=== PATIENT | male | born 1990 | race Caucasian/White ===

== ENCOUNTER 2017-12-14 15:29 | Inpatient (IN) | payer BC ==
[~2017-12-14] VITALS: Ht 170.2 cm; Wt 63.6 kg
[2017-12-14] MEDS ORDERED: SODIUM CHLORIDE 0.9% 1000ML 1,000 ML IV ONE ×2 (15:57→20:53)
[2017-12-14] MEDS ORDERED: MORPHINE SULFATE 2 MG/ML 1ML SYG ONE ×4 (15:57→18:54)
[2017-12-14 16:01] LABS: APPEARANCE,URINE Clear (CLEAR); BASOPHILS % (AUTO) 0.6 % (0.0-5.0); BILIRUBIN,URINE Negative (NEGATIVE); COLOR,URINE Yellow (YELLOW); EOSINOPHILS % (AUTO) 1.2 % (0.0-8.0); GLUCOSE, URINE (UA) Negative (NEGATIVE); HEMATOCRIT 41.9 % (42-54); KETONES,URINE Trace mg/dL (NEGATIVE); LEUKOCYTE ESTERASE ,URINE Negative (NEGATIVE); LYMPHOCYTES % (AUTO) 25.1 % (21.0-51.0); MEAN CORPUSCULAR HEMOGLOBIN 31.6 pg (27.0-33.0); MEAN CORPUSCULAR HGB CONC 34.7 g/dL (32.0-36.0); MEAN CORPUSCULAR VOLUME 90.9 fL (79-99); MONOCYTES % (AUTO) 5.5 % (3.0-13.0); NEUTROPHILS % (AUTO) 67.6 % (40.0-77.0); NITRATE,URINE Negative (NEGATIVE); NUCLEATED RED BLOOD CELLS 0.1 % (0.0-0.19); OCCULT BLOOD,URINE Negative (NEGATIVE); PLATELET COUNT (AUTO) 345 K/uL (130-400); PROTEIN,URINE Negative (NEGATIVE); RED BLOOD CELL COUNT(AUTO) 4.61 MIL/uL (4.50-6.20); RED CELL DISTRIBUTION WIDTH 14.1 % (11.0-15.5); UROBILINOGEN,URINE 0.2 mg/dL (0.2-1.0); WHITE BLOOD COUNT (AUTO) 11.1 K/uL (4.8-10.8)
[2017-12-14 16:12] LABS: CREATININE 0.9 mg/dL (0.5-1.5); POTASSIUM 3.8 mmol/L (3.5-5.1)
[2017-12-14 16:16] LABS: ALBUMIN 4.4 g/dL (3.5-5.0); BILIRUBIN,TOTAL 0.6 mg/dL (0.2-1.0); TOTAL PROTEIN, SERUM 8.3 g/dL (6.0-8.3)
[2017-12-14] MEDS ORDERED: IOHEXOL-350 75 ML VIAL IV ONE (16:31)
[2017-12-14 20:13] VITALS: BP 131/96
[2017-12-14] MEDS ORDERED: MORPHINE SULFATE 2 MG/ML 1ML SYG IVP PRN ×2 (21:00)
[2017-12-14] MEDS ORDERED: ONDANSETRON HCL 4 MG/2 ML VIAL IVP PRN ×2 (21:00)
[2017-12-14] MEDS: SODIUM CHLORIDE 0.9% 1000ML 1,000 ML IV SCH (21:00)
[2017-12-14] MEDS ORDERED: ACETAMINOPHEN 325 MG TAB PO PRN ×2 (21:00)
[2017-12-14] MEDS: FAMOTIDINE 20MG TAB 20 MG TAB PO SCH (21:00)
[2017-12-14] MEDS ORDERED: HYDROMORPHONE 1 MG/1 ML AMP ONE ×2 (23:21→23:22)
[2017-12-15 00:19] VITALS: BP 148/65
[2017-12-15] MEDS ORDERED: HYDROMORPHONE 1 MG/1 ML AMP ONE (02:58)
[2017-12-15 03:40] VITALS: BP 136/75
[2017-12-15 05:36] LABS: HEMATOCRIT 37.2 % (42-54); MEAN CORPUSCULAR HEMOGLOBIN 31.6 pg (27.0-33.0); MEAN CORPUSCULAR HGB CONC 34.6 g/dL (32.0-36.0); MEAN CORPUSCULAR VOLUME 91.3 fL (79-99); PLATELET COUNT (AUTO) 284 K/uL (130-400); RED BLOOD CELL COUNT(AUTO) 4.08 MIL/uL (4.50-6.20); WHITE BLOOD COUNT (AUTO) 8.4 K/uL (4.8-10.8)
[2017-12-15 05:49] LABS: ALBUMIN 3.3 g/dL (3.5-5.0); BILIRUBIN,TOTAL 0.5 mg/dL (0.2-1.0); CREATININE 0.9 mg/dL (0.5-1.5); POTASSIUM 3.8 mmol/L (3.5-5.1); TOTAL PROTEIN, SERUM 6.5 g/dL (6.0-8.3)
[2017-12-15] MEDS: SODIUM CHLORIDE 0.9% 1000ML 1,000 ML IV SCH ×2 (06:24→10:20)
[2017-12-15 07:30] VITALS: BP 120/79
[2017-12-15] MEDS: FAMOTIDINE 20MG TAB 20 MG TAB PO SCH (09:00)
[2017-12-15] MEDS: HYDROMORPHONE HCL 2 MG/ML VIAL IVP PRN ×3 (09:07→22:27)
[2017-12-15 11:00] VITALS: BP 123/76
[2017-12-15 16:00] VITALS: BP 135/83
[2017-12-15] MEDS: LACTATED RINGERS 1000ML 1,000 ML IV SCH ×2 (16:57→22:32)
[2017-12-15 19:00] VITALS: BP 117/66
[2017-12-15] MEDS: FAMOTIDINE/PF 20 MG/2 ML VIAL IV SCH (20:31)
[2017-12-16] VITALS: BP 145/75
[2017-12-16 04:00] VITALS: BP 116/72
[2017-12-16] MEDS: LACTATED RINGERS 1000ML 1,000 ML IV SCH ×3 (04:33→18:51)
[2017-12-16 06:16] LABS: HEMATOCRIT 33.7 % (42-54); MEAN CORPUSCULAR HEMOGLOBIN 32.8 pg (27.0-33.0); MEAN CORPUSCULAR HGB CONC 36.1 g/dL (32.0-36.0); MEAN CORPUSCULAR VOLUME 91.1 fL (79-99); PLATELET COUNT (AUTO) 244 K/uL (130-400); RED CELL DISTRIBUTION WIDTH 13.7 % (11.0-15.5); WHITE BLOOD COUNT (AUTO) 6.9 K/uL (4.8-10.8)
[2017-12-16 06:31] LABS: CREATININE 0.7 mg/dL (0.5-1.5); MAGNESIUM 1.5 mg/dL (1.80-2.40); POTASSIUM 3.6 mmol/L (3.5-5.1)
[2017-12-16 08:26] VITALS: BP 120/73
[2017-12-16] MEDS: FAMOTIDINE/PF 20 MG/2 ML VIAL IV SCH ×2 (09:51→20:54)
[2017-12-16 11:53] VITALS: BP 129/80
[2017-12-16 16:11] VITALS: BP 134/86
[2017-12-16 20:00] VITALS: BP 120/82
[2017-12-16] MEDS ORDERED: MAGNESIUM 2GM PREMIX 50ML 50 ML IV SCH (20:15)
[2017-12-17] VITALS: BP 126/76
[2017-12-17] MEDS: LACTATED RINGERS 1000ML 1,000 ML IV SCH ×2 (01:13→10:04)
[2017-12-17 04:00] VITALS: BP 116/72
[2017-12-17 05:36] LABS: BASOPHILS % (AUTO) 0.5 % (0.0-5.0); EOSINOPHILS % (AUTO) 3.4 % (0.0-8.0); HEMATOCRIT 34.2 % (42-54); MEAN CORPUSCULAR HEMOGLOBIN 32.1 pg (27.0-33.0); MEAN CORPUSCULAR HGB CONC 35.4 g/dL (32.0-36.0); MEAN CORPUSCULAR VOLUME 90.8 fL (79-99); MONOCYTES % (AUTO) 10.6 % (3.0-13.0); NEUTROPHILS % (AUTO) 55.5 % (40.0-77.0); PLATELET COUNT (AUTO) 267 K/uL (130-400); RED BLOOD CELL COUNT(AUTO) 3.77 MIL/uL (4.50-6.20); RED CELL DISTRIBUTION WIDTH 13.8 % (11.0-15.5); WHITE BLOOD COUNT (AUTO) 6.1 K/uL (4.8-10.8)
[2017-12-17 05:55] LABS: CREATININE 0.7 mg/dL (0.5-1.5); MAGNESIUM 2.2 mg/dL (1.80-2.40); POTASSIUM 3.8 mmol/L (3.5-5.1)
[2017-12-17 08:22] VITALS: BP 124/83
[2017-12-17] MEDS: FAMOTIDINE/PF 20 MG/2 ML VIAL IV SCH (09:59)
[2017-12-17 11:43] VITALS: BP 126/89
[2017-12-17] MEDS ORDERED: SUCR1TAB PO (12:10)
[2017-12-17] MEDS ORDERED: TRAM50TA2 PO (12:10)
== END 2017-12-17 14:00 | disposition home or self-care (01) | DRG 439 ==
LOC: EDH 15:29 → EDHIP 18:17 → 3DH 19:41
PROVIDERS: ADMIT Family Medicine; ATTEND Family Medicine
DX: K85.90 Acute pancreatitis without necrosis or infection, unspecified (principal); E44.1 Mild protein-calorie malnutrition; F10.10 Alcohol abuse, uncomplicated; R74.8 Abnormal levels of other serum enzymes; K52.9 Noninfective gastroenteritis and colitis, unspecified; E66.9 Obesity, unspecified; Z68.22 Body mass index [BMI] 22.0-22.9, adult
CPT/HCPCS: 36415; 74177; 76705; 80048; 80053; 81003; 82150; 83690; 83735; 84478; 85025; 85027; J1170; J2405; J3475; J3490; J7030; J7120; Q9967